=== PATIENT | female | born 1950 | race Caucasian/White ===

== ENCOUNTER 2021-10-12 11:49 | Emergency (ER) | payer OTHER, BC ==
[2021-10-12 11:55] VITALS: BP 143/68; PULSE 89; TEMP 97.8; BMI 28.5
== END 2021-10-12 14:00 | disposition home or self-care (01) ==
LOC: FER 11:49
DX: M54.2 Cervicalgia (principal); V49.40XA Driver injured in collision with unspecified motor vehicles in traffic accident, initial encounter
CPT/HCPCS: 73562-TC-RT-FY; 99283-25